=== PATIENT | male | born 1955 | race Caucasian/White ===

== ENCOUNTER → 2017-04-20 | Outpatient (CLI) | payer BC ==
[~2017-04-20] MED LIST: ALB18R INH; AMOX500T10 PO; ASPI-292 PO; ASPI-757 PO; ASPI81TA94 PO; CEFU250T11 PO; CPAP; EZET10TA41 PO; FEN145 PO; FLU45SYR17 IM; FLU45SYR25 IM ONLY; FLUT1DIS28 IH; FLUT1DIS29 IH; IPRA4AER IH; OXYGENHOME INH; TIO18R INH; TRI40I INTRA-ART; TRICOR PO
[2017-04-20 08:28] LABS: PLATELET COUNT, AUTOMATED 146 K/uL (150-450)
[2017-04-20 09:11] LABS: LDL CHOLESTEROL 78 mg/dl
== END ==
LOC: LAB 08:00
PROVIDERS: ATTEND Internal Medicine
DX: D75.1 Secondary polycythemia (principal); E78.2 Mixed hyperlipidemia; I10 Essential (primary) hypertension
CPT/HCPCS: 36415; 82040; 82247; 82310; 82374; 82435; 82465; 82565; 82947; 83718; 84075; 84132; 84155; 84295; 84450; 84460; 84478; 84520; 85025

== ENCOUNTER → 2017-07-28 | Outpatient (CLI) | payer BC ==
[~2017-07-28] MED LIST changes: +BIOT250012 PO; +UBID50CA24 PO
[2017-07-28 08:40] LABS: PLATELET COUNT, AUTOMATED 168 K/uL (150-450)
[2017-07-28 09:13] LABS: LDL CHOLESTEROL 73 mg/dl
== END ==
LOC: LAB 08:05
PROVIDERS: ATTEND Internal Medicine
DX: E78.2 Mixed hyperlipidemia (principal); I10 Essential (primary) hypertension; D75.1 Secondary polycythemia; J43.9 Emphysema, unspecified
CPT/HCPCS: 36415; 82040; 82247; 82310; 82374; 82435; 82465; 82565; 82947; 83718; 84075; 84132; 84155; 84295; 84450; 84460; 84478; 84520; 85025

== ENCOUNTER → 2017-12-02 | Outpatient (CLI) | payer BC ==
[2017-12-02 09:39] LABS: PLATELET COUNT, AUTOMATED 150 K/uL (150-450)
[2017-12-02 10:29] LABS: LDL CHOLESTEROL 86 mg/dl
== END ==
LOC: LAB 09:11
PROVIDERS: ATTEND Internal Medicine
DX: R97.20 Elevated prostate specific antigen [PSA] (principal); D75.1 Secondary polycythemia; E78.2 Mixed hyperlipidemia; I10 Essential (primary) hypertension
CPT/HCPCS: 36415; 82040; 82247; 82310; 82374; 82435; 82465; 82565; 82947; 83718; 84075; 84132; 84153; 84155; 84295; 84450; 84460; 84478; 84520; 85025

== ENCOUNTER → 2017-12-02 | Outpatient (CLI) | payer BC | LOC: LAB 09:13 | DX: R97.20 Elevated prostate specific antigen [PSA] (principal) ==

== ENCOUNTER 2018-02-10 01:24 | Day surgery (SDC) | payer BC ==
[~2018-02-10] VITALS: Ht 193 cm; Wt 106.1 kg
[~2018-02-10 01:24] MED LIST changes: +CHOL10005 PO; +VITA100T4 PO
[2018-02-10 07:18] VITALS: BP 131/76
[2018-02-10 08:04] VITALS: BP 115/69
[2018-02-10 09:04] VITALS: BP 115/69
--- NOTE | 2018-02-10 09:15 | Short(Outpt) Discharge Summary ---
Discharge Summary Reason for Hosp/Final Diag: (1) Colon cancer screening Status: Chronic Hospital Course & Plan: Colonoscopy completed without problems. Normal. Departure Discharge to: Home, Self Care Discharge Instructions Home Meds Active Scripts Fluticasone/Salmeterol (ADVAIR 500-50 DISKUS) 1 Each Disk.w.dev, 1 EACH IH BID, #3 INH 4 Refills Prov:PENG CORREIA MD 12/24/17 Ezetimibe (ZETIA) 10 Mg Tablet, 1 TAB PO QDAY, #90 TAB 4 Refills Prov:PENG CORREIA MD 06/17/17 Fenofibrate,Micronized (TRICOR) 145 Mg Tab, 1 TAB PO QDAY, #90 TAB 4 Refills Prov:PENG CORREIA MD 06/17/17 Tiotropium [place] (SPIRIVA) 18 Mcg/Cap Inh, 1 CAP INH QDAY, #90 CAP 4 Refills Prov:PENG CORREIA MD 09/07/16 Ipratropium/Albuterol Sulfate (COMBIVENT RESPIMAT INHAL SPRAY) 4 Gm Aer.w.adap, 1 PUFF IH QID PRN for SHORTNESS OF BREATH, #3 INHALER 4 Refills 1 puff inhaled using adapter qid prn shortness of breath Prov:PENG CORREIA MD 09/07/16 Reported Medications Vitamin E Mixed (VITAMIN E) Unknown Strength Tablet, PO 01/12/18 Cholecalciferol (Vitamin D3) (VITAMIN D3) Unknown Strength Tablet, PO, TAB 01/12/18 Ubidecarenone (CO Q-10) 50 Mg Capsule, 1 CAP PO QDAY 04/22/17 Oxygen (OXYGEN) Inha, INH HS with C-PAP 12/05/14 Cpap (CPAP HOME) Inha, HS 12/05/14 Aspirin (ASPIRIN) 81 Mg Tab.chew, 2 TAB PO QDAY 08/08/14 Diet: Regular Activity: As Tolerated Special Instructions: Your colonoscopy was completed without problems and your prep was excellent (Good Job!!). I didn't find any polyps, cancer, or other problems. I recommend that your next colonoscopy be completed in 10 years. Copies to: PENG CORREIA MD ; JOSEFINA MONDRAGON MD Feb 10, 2018 09:15
[2018-02-10 09:22] VITALS: BP 104/54
[2018-02-10 09:48] VITALS: BP 122/97
[2018-02-10 09:50] VITALS: BP 117/86
[2018-02-10] MEDS ORDERED: NORMOSOL R SOLN(*) 1000 ML BAG 1,000 ML IV PRN ×2 (11:00→11:30)
[2018-02-10] MEDS ORDERED: LIDOCAINE/SOD BICARB 8.4% SYR ID ONE ×2 (11:00→11:30)
[2018-02-10] MEDS ORDERED: PROPOFOL EMUL(*) 10MG/ML 20 ML 60 ML ONE (12:34)
== END 2018-02-10 10:05 | disposition home or self-care (01) ==
LOC: OR 01:24
PROVIDERS: ATTEND Surgery
DX: Z12.11 Encounter for screening for malignant neoplasm of colon (principal); Z86.010 Personal history of colon polyps
CPT/HCPCS: 00812; 45378; J2704

== ENCOUNTER → 2018-04-26 | Outpatient (CLI) | payer BC ==
[2018-04-26 09:46] LABS: PLATELET COUNT, AUTOMATED 154 K/uL (150-450)
== END ==
LOC: LAB 09:22
PROVIDERS: ATTEND Internal Medicine
DX: D75.1 Secondary polycythemia (principal); E78.2 Mixed hyperlipidemia; I10 Essential (primary) hypertension
CPT/HCPCS: 36415; 82040; 82247; 82310; 82374; 82435; 82465; 82565; 82947; 83718; 84075; 84132; 84155; 84295; 84450; 84460; 84478; 84520; 85025

== ENCOUNTER → 2018-04-27 | Outpatient (CLI) | payer BC | LOC: LAB 09:07 | PROVIDERS: ATTEND Internal Medicine | DX: R73.01 Impaired fasting glucose (principal) | CPT/HCPCS: 36415; 82947; 83036 ==

== ENCOUNTER → 2018-06-04 | Outpatient (CLI) | payer BC ==
[~2018-06-04] MED LIST changes: +METF-450 PO
== END ==
LOC: LAB 08:52
DX: R97.20 Elevated prostate specific antigen [PSA] (principal)
CPT/HCPCS: 36415; 84153